=== PATIENT | female | born 1975 | race Caucasian/White ===

== ENCOUNTER 2024-10-31 03:29 | Emergency (ER) | payer OTHER ==
[2024-10-31 03:41] VITALS: TEMP 97.8
[2024-10-31] MEDS ORDERED: TORAdol 30 mg Injection ONE (04:06)
[2024-10-31] MEDS: TORAdol 30 mg Injection IV ONE (04:08)
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
[2024-10-31 04:30] LABS: Absolute Neutrophil Ct (ANC) 5.23 x10^3/uL (1.56-6.13); BASOPHIL % 0.4 % (0.1-1.2); Basophil (Absolute #) 0.03 x10^3/uL (0.01-0.08); Eosinophil % 0.8 % (0.7-5.8); Eosinophil (Absolute #) 0.06 x10^3/uL (0.04-0.36); Hematocrit 39.5 % (34.1-44.9); Hemoglobin 13.3 g/dL (11.2-15.7); IMMATURE GRAN # 0.02 x10^3u/L (0.001-0.031); IMMATURE GRAN % 0.3 % (0.001-0.429); Lymphocyte (Absolute #) 1.54 x10^3/uL (1.18-3.74); Lymphocytes % 20.9 % (19.3-51.7); Mean Corpuscular Hemoglobin 30.3 pg (25.6-32.2); Mean Corpuscular Hgb Concent. 33.7 g/dL (32.2-35.5); Mean Platelet Volume 9.3 fL (9.4-12.3); Monocyte (Absolute #) 0.49 x10^3/uL (0.24-0.86); Monocytes % 6.6 % (4.7-12.5); Platelet Count 233 x10^3/uL (182-369); Red Blood Count 4.39 x10^6/uL (3.93-5.22); Red Cell Distribution Width 12.9 % (11.7-14.4); White Blood Count 7.4 x10^3/uL (3.98-10.04)
[2024-10-31 04:35] LABS: ALBUMIN 4.5 g/dL (3.5-5.0); ANION GAP 16.2 MEQ/L (5-15); BILIRUBIN,TOTAL 0.8 mg/dL (0.2-1.3); Calcium 9.2 mg/dL (8.4-10.2); Creatinine 1 0.51 mg/dL (0.52-1.04); EST GLOMERULAR FILTRATION RATE 114.4 ML/MIN; Potassium 3.8 mmol/L (3.5-5.1); Total Protein 7.2 g/dL (6.3-8.2)
[2024-10-31 04:58] LABS: Appearance Clear (Clear); Bacteria None Seen /HPF (None Seen); Bilirubin Negative (Negative); Blood Negative (Negative); Epithelial Cells None Seen /HPF (None Seen); Glucose, Urine Negative (Negative); Hyaline Casts NONE SEEN /LPF (0-2); Ketones 15 (Negative); Leukocyte Esterase Negative (Negative); Nitrite Negative (Negative); Ph 8.5 (4.6-8.0); Protein,Urine Dip 30 (Negative); RBC 0-2 /HPF (0-5); WBC 0-2 /HPF (0-5)
--- NOTE | 2024-10-31 04:58 | XRAY ---
CLINICAL HISTORY: trauma COMPARISON: None. TECHNIQUE: Computed tomography of the cervical spine performed without intravenous contrast. Contiguous axial images were obtained from the skull base to T2, with sagittal and coronal reformatted images reconstructed from the axial data. CT scan was performed according to ALARA (as low as reasonable achievable). FINDINGS: The normal cervical lordotic curvature is maintained. Degenerative changes involving cervical spine in the form of multilevel marginal osteophytes, disc space reduction Cervical vertebral bodies are normal in height and alignment, with no evidence of fracture or subluxation. Lateral masses of C1 are symmetrical, and the dens is intact. Prevertebral soft tissues are not widened. The remaining suprahyoid and infrahyoid soft tissues in the neck are unremarkable. C2-C3: No disc bulge, mass effect on the cord or neuroforaminal narrowing. C3-C4: No disc bulge, mass effect on the cord or neuroforaminal narrowing. C4-C5: Posterior uncovertebral arthrosis which indenting ventral thecal sac and causes bilateral neuroforaminal narrowing. C5-C6: No disc bulge, mass effect on the cord or neuroforaminal narrowing. C6-C7: No disc bulge, mass effect on the cord or neuroforaminal narrowing. C7-T1: No disc bulge, mass effect on the cord or neuroforaminal narrowing. Thyroid gland appears unremarkable. IMPRESSION: 1.No acute fracture or subluxation in the cervical spine. 2. Mild cervical spondylosis. Electronically Signed by: Tejas Rondon MD. (10/31/2024 04:54:30 EDT)
--- NOTE | 2024-10-31 05:00 | XRAY ---
CLINICAL HISTORY: trauma COMPARISON: None. TECHNIQUE: Multiple contiguous axial images were obtained through the lumbar spine without IV contrast. Sagittal and coronal reformatted images were obtained from the axial data. CT scan was performed according to ALARA (as low as reasonable achievable). FINDINGS: Loss of lumbar lordosis - suggest possibility of muscle spasm/positional. Degenerative changes involving lumbar spine in the form of multilevel marginal osteophytes, disc space reduction and facetal arthrosis. Reduction in L5-S1 disc height is noted with endplate irregularities. Post laminectomy status is noted at L5 vertebra. Intrahepatic fixation screws are noted at L5 and S1 vertebra. Rest ofLumbar vertebral bodies are maintained in height and alignment. No vertebral estructive changes are seen. L1-L2: No disc bulge, canal stenosis or neuroforaminal narrowing. Subarticular recesses are patent. L2-L3: No disc bulge, canal stenosis or neuroforaminal narrowing. Subarticular recesses are patent. L3-L4: No disc bulge, canal stenosis or neuroforaminal narrowing. Subarticular recesses are patent. L4-L5: No disc bulge, canal stenosis or neuroforaminal narrowing. Subarticular recesses are patent. L5-S1: suboptimally evaluated. Paravertebral soft tissues are unremarkable. IMPRESSION: 1. Lumbar spondylosis. 2. No fracture. Electronically Signed by: Tejas Rondon MD. (10/31/2024 04:55:24 EDT)
--- NOTE | 2024-10-31 05:02 | XRAY ---
CLINICAL HISTORY: trauma COMPARISON: None. TECHNIQUE: Multiple axial images are obtained from the skull base to the vertex without contrast. CT scan was performed according to ALARA (as low as reasonable achievable). FINDINGS: The brain shows normal morphology, attenuation, and volume for age. No evidence of space occupying lesion, hemorrhage, edema, mass effect, midline shift, extra axial collection, or hydrocephalus is noted. Ventricles, sulci, and basal cisterns are symmetric and normal in size and configuration. The lane-white matter differentiation is preserved. Bilateral maxillary sinusitis. Rest of paranasal sinuses and mastoid air cells are well aerated. Orbital contents are within normal limits. Bony structures are intact. IMPRESSION: 1. No evidence of acute intracranial abnormality is demonstrated Electronically Signed by: Tejas Rondon MD. (10/31/2024 04:58:40 EDT)
--- NOTE | 2024-10-31 05:02 | XRAY ---
CLINICAL HISTORY: trauma COMPARISON: None. TECHNIQUE: Multiple contiguous axial images were obtained through the thoracic spine without IV contrast. Sagittal and coronal reformatted images were obtained from the axial data. CT scan was performed according to ALARA (as low as reasonable achievable). FINDINGS: Degenerative changes involving thoracic spine in the form of multilevel marginal osteophytes, disc space reduction and facetal arthrosis. The alignment of the thoracic spine is maintained.Thoracic vertebral bodies are maintained in height and alignment. No vertebral destructive changes are seen. C7-T1: No disc bulge. No canal stenosis. No neuroforaminal narrowing. T1-T2: No disc bulge. No canal stenosis. No neuroforaminal narrowing. T2-T3: No disc bulge. No canal stenosis. No neuroforaminal narrowing. T3-T4: No disc bulge. No canal stenosis. No neuroforaminal narrowing. T4-T5: No disc bulge. No canal stenosis. No neuroforaminal narrowing. T5-T6: No disc bulge. No canal stenosis. No neuroforaminal narrowing. T6-T7: No disc bulge. No canal stenosis. No neuroforaminal narrowing. T7-T8: No disc bulge. No canal stenosis. No neuroforaminal narrowing. T8-T9: No disc bulge. No canal stenosis. No neuroforaminal narrowing. T9-T10: No disc bulge. No canal stenosis. No neuroforaminal narrowing. T10-T11: No disc bulge. No canal stenosis. No neuroforaminal narrowing. T11-T12: No disc bulge. No canal stenosis. No neuroforaminal narrowing. Paravertebral soft tissues are unremarkable. Visualized lung parenchyma appears unremarkable. IMPRESSION: 1. Thoracic spondylosis. 2. No fracture or dislocation. Electronically Signed by: Tejas Rondon MD. (10/31/2024 04:58:37 EDT)
[2024-10-31 05:15] VITALS: O2SAT 100
[2024-10-31 05:34] LABS: Amphetamine,Urine NEGATIVE (NEGATIVE); Barbiturate,Urine POSITIVE (NEGATIVE); Benzodiazepine,Urine NEGATIVE (NEGATIVE); Cocaine,Urine NEGATIVE (NEGATIVE); Methadone,Urine NEGATIVE (NEGATIVE); Opiate,Urine NEGATIVE (NEGATIVE); PCP,Urine NEGATIVE (NEGATIVE); THC,Urine NEGATIVE (NEGATIVE)
[2024-10-31] MEDS ORDERED: TYLENOL 325 MG ONE (06:35)
[2024-10-31] MEDS: TYLENOL 325 MG PO ONE (06:37)
[2024-10-31 07:05] VITALS: BP 119/84
[2024-10-31 08:01] VITALS: PULSE 97; RESP 18
== END 2024-10-31 07:45 | disposition home or self-care (01) ==
LOC: ED 03:29 → EEVIPCON 03:29 → ED 07:45
DX: R55 Syncope and collapse (principal); S16.1XXA Strain of muscle, fascia and tendon at neck level, initial encounter; S39.012A Strain of muscle, fascia and tendon of lower back, initial encounter; W18.39XA Other fall on same level, initial encounter; Y92.142 Bathroom in prison as the place of occurrence of the external cause; M54.6 Pain in thoracic spine; Z79.899 Other long term (current) drug therapy
CPT/HCPCS: 36415; 70450; 72125; 72128; 72131; 80053; 80307; 81001; 84484; 85025; 93005; 93041; 93225; 94760; 96374; 99285; P9612; 99284; J1885; A9270-GY